=== PATIENT | male | born 1950 | race Caucasian/White ===

== ENCOUNTER 2017-03-12 07:30 | Day surgery (SDC) | payer OTHER ==
[~2017-03-12] VITALS: Ht 172.7 cm; Wt 107.0 kg
[~2017-03-12 07:30] MED LIST: BECL8.7A6 INHALATION; BENEDRYL PO; FLUT16SP NS; GABA-502 PO; GLIP10TA10 PO; GUAI120L57 PO; HYDR12.5 PO; KEN25CR EXT; LISI-567 PO; MELO-253 PO; METF500T4 PO; PREG50CA PO; SILD20TA14 PO
[2017-03-12] MEDS ORDERED: ATRV10T PO (08:16)
[2017-03-12] MEDS ORDERED: Gadopentetate Dimeglumine 5 mL Inj IVPUSH ONE (08:22)
--- NOTE | 2017-03-12 12:55 | PCM.PROC ---
Procedure Note Date of Service: Mar 12, 2017 Pre Procedure Diagnosis: RIGHT C4 transforaminal epidural steroid injection rescheduled secondary to elevated fingerstick glucose. Dada Fam MD Mar 12, 2017 12:55
[2017-04-08] MEDS ORDERED: MELO-253 PO (15:02)
[2017-04-08] MEDS ORDERED: KEN25CR EXT (15:02)
[2017-04-08] MEDS ORDERED: GUAI120L57 PO (15:02)
[2017-04-08] MEDS ORDERED: SILD20TA14 PO (15:02)
[2017-04-08] MEDS ORDERED: FLUT16SP NS (15:02)
[2017-04-08] MEDS ORDERED: GLIP10TA10 PO (15:02)
[2017-04-08] MEDS ORDERED: HYDR12.55 PO (15:02)
[2017-04-08] MEDS ORDERED: BECL8.7A6 INHALATION (15:02)
[2017-04-08] MEDS ORDERED: PREG50CA PO (15:02)
[2017-04-08] MEDS ORDERED: DIPH25CA6 PO (15:02)
[2017-04-08] MEDS ORDERED: GABA-502 PO (15:02)
[2017-04-08] MEDS ORDERED: LISI-567 PO (15:02)
== END 2017-03-12 23:59 | disposition home or self-care (01) ==
LOC: END 07:30
PROVIDERS: ATTEND Anesthesiology Pain Medicine
DX: M54.12 Radiculopathy, cervical region (principal); M54.2 Cervicalgia; M19.90 Unspecified osteoarthritis, unspecified site; E11.42 Type 2 diabetes mellitus with diabetic polyneuropathy; Z79.84 Long term (current) use of oral hypoglycemic drugs; Z53.09 Procedure and treatment not carried out because of other contraindication

== ENCOUNTER 2017-04-09 07:30 | Day surgery (SDC) | payer OTHER ==
[~2017-04-09] VITALS: Ht 172.7 cm; Wt 109.0 kg
[~2017-04-09 07:30] MED LIST changes: -BENEDRYL PO; +DIPH25CA6 PO; -HYDR12.5 PO; +HYDR12.55 PO; -METF500T4 PO
[2017-04-09] MEDS ORDERED: Lidocaine PF 1% 5 mL Inj ONE (07:31)
[2017-04-09] MEDS ORDERED: Dexamethasone 10 mg/mL Inj ONE (07:31)
[2017-04-09] MEDS ORDERED: Gadopentetate Dimeglumine 5 mL Inj IVPUSH ONE (07:55)
[2017-04-09 07:59] VITALS: BP 167/74; PULSE 67; RESP 20; O2SAT 98
--- NOTE | 2017-04-09 14:39 | PCM.PROC ---
Procedure Note Date of Service: April 09, 2017 Pre Procedure Diagnosis: PROCEDURE: RIGHT C4 transforaminal epidural steroid injection PRE-PROCEDURE DIAGNOSIS: Cervical radiculopathy POST-PROCEDURE DIAGNOSIS: same INDICATION: 66-year-old gentleman with RIGHT arm pain consistent with cervical radiculopathy PERFORMED BY: Dada Fam MD DESCRIPTION OF PROCEDURE: Patient was met in the holding area. Consent was signed, site was confirmed and all questions were answered. Patient was taken to the procedure suite and placed supine on the procedure table. An IV was placed with TKO NS. The side of the neck was prepped and draped in sterile fashion. The image intensifier was rotated to an oblique view to visualize the proper neuroforamen. Local anesthesia with 1% lidocaine was injected into the skin and superficial subcutaneous tissue. A 2 inch 25-gauge Quincke spinal needle was advanced towards the inferior/posterior aspect of the neural foramina. After the SAP of the neuroforamina was contacted with the spinal needle the bevel was directed anterior. The view was then changed to an AP view and the tip of the needle was stopped lateral to the sagittal midline of the articular pillar. Radiopaque contrast was injected under live fluoroscopy which demonstrated outline of the spinal nerve, dorsal root ganglion as well as spread into the epidural space. No vascular uptake was noted. 1 cc 1% lidocaine was injected. After 1 minute with no neurologic sequela, 10 mg of Decadron was injected. This was followed by another half cc of 1% lidocaine ANESTHESIA: Local. EBL: None. No Blood Products Used COMPLICATIONS: None SPECIMENS: None POST-PROCEDURE DISPOSITION: Patient was returned to the holding area in stable condition. They were discharged home when all discharge criteria were met. Evaluation/Physical Exam before discharge revealed: Preprocedure pain: 4/10. Post procedure pain: 1/10 DISCHARGE MEDICATIONS: (none unless otherwise noted) ASSESSMENT/ FOLLOW UP: Return to clinic in 4 weeks Dada Fam MD * Pain Management * Anesthesiology Dada Fam MD April 09, 2017 14:39
== END 2017-04-09 23:59 | disposition home or self-care (01) ==
LOC: END 07:30
PROVIDERS: ATTEND Anesthesiology Pain Medicine
PROC: 3E0R33Z Introduction of Anti-inflammatory into Spinal Canal, Percutaneous Approach (ICD-10-PCS; principal; 2017-04-09 08:00)
DX: M54.12 Radiculopathy, cervical region (principal); E11.42 Type 2 diabetes mellitus with diabetic polyneuropathy
CPT/HCPCS: 64479; A9579; J1100

== ENCOUNTER → 2017-07-15 | Day surgery (SDC) | payer OTHER ==
[~2017-07-15] VITALS: Ht 172.7 cm; Wt 107.3 kg
[~2017-07-15] MED LIST changes: +Atropine 0.4 mg/mL Inj IVPUSH PRN; +CYCL10TA9 PO; +EPHEDrine Sulfate 50 mg/mL Inj IVPUSH PRN; +HYDROcodone-APAP 5-325 mg Tablet PO PRN; +Labetalol 5 mg/mL 20 mL Inj IV PRN; +Lactated Ringer's 1,000 ML IV SCH; +Lactated Ringer's 500 ML IV PRN; +Lidocaine 1%-Epi 1:100,000 20 mL Inj NERVEBLOCK ONE; +METF500T4 PO; +Ondansetron 2 mg/mL 2 mL Inj IVPUSH PRN; -PREG50CA PO; +Phenylephrine 10,000 mCg/mL Inj IVPUSH PRN; +Propofol 10 mg/mL 20 mL Inj ONE; +TRAM50TA2 PO; +fentaNYL-PF 50 mCg/mL 2 mL Inj IVPUSH PRN; +lantus SUBQ
[2017-07-15] MEDS: Lactated Ringer's 1,000 ML IV SCH ×2 (07:04→08:00)
[2017-07-15 07:20] VITALS: BP 138/82; PULSE 50; RESP 17; O2SAT 99
--- NOTE | 2017-07-15 08:30 | PCM.HPANE ---
Patient Data Surgeon Admitting Provider: Attending Provider:Ousmane Alarcon DO Primary Care Physician:Phil Logan MD Other Provider:Laquita Dooleyingham Anesthesia Reason for Visit Left Middle Finger Trigger Finger Ht/WT & BMI Height (Feet): 5 Height (Inches): 8 Weight (Kilograms): 107.3 Body Mass Index 35.00 Allergies Coded Allergies: TAPE (Verified Allergy, Severe, HIVES (PAPER OK), 08/09/14) iodine (Verified Allergy, Severe, HIVES (BOTH TOPICAL & INJECTABLE IODINE), 08/09/14) povidone-iodine (Verified Allergy, Severe, HIVES, 07/15/17) soap (Verified Allergy, Severe, HIVES, 07/15/17) Uncoded Allergies: SEAFOOD (Allergy, Severe, HIVES, 05/10/12) CONTRAST (Allergy, Unknown, 07/15/17) Past Anesthesia History Anesthesia History: Positive for:: Anesthesia Reactions (N&V), Denies:: Abnormal Airway, Difficult Intubation, Fam Anesthesia Reaction, Malignant Hyperthermia Diabetes History Hx Diabetes?: Yes Type of Diabetes: Type II Glycemic Control: Insulin & Oral Medication MRSA MRSA: No Medications Hypertension Medication: Yes Home Meds Incl Beta Donna: No Reported Medications Gabapentin 300 Mg [id number] Mg PO TID Ref 0 07/12/17 Tramadol 50 Mg Palxwr38 Mg PO Q6H PRN For Pain Ref 0 07/09/17 Metformin 500 Mg Nqiyxs214 Mg PO BID Ref 0 07/09/17 [lantus] No Conflict Sjiqj38-76 Units SUBQ HS 07/09/17 Cyclobenzaprine 10 Mg Kedzfd81 Mg PO TID PRN Spasm 07/09/17 Triamcinolone Acet (Triamcinolone Acetonide Cream)1 Applic/0.25 Gm Cr1 Applic EXT PRN #60 GM Ref 0 04/08/17 Meloxicam 15 Mg Tjsrcc98 Mg PO DAILY 30 Days Ref 0 04/08/17 Lisinopril 20 Mg Uklqjw35 Mg PO DAILY 30 Days Ref 0 04/08/17 Hydrochlorothiazide 12.5 Mg Cyfkjc55.5 Mg PO DAILY 30 Days Ref 0 04/08/17 Glipizide 10 Mg Xnbgpt88 Mg PO BID 30 Days 04/08/17 diphenhydrAMINE HCl (Benadryl)25 Mg Nzeaoot21 Mg PO HS PRN Ref 0 04/08/17 Discontinued Reported Medications Sildenafil Citrate (Sildenafil)20 Mg Jypfay75 Mg PO TID 07/09/17 Beclomethasone Dipropionate (Qvar)8.7 Gm Aer.w.adap2 Puff INHALATION BID #8.7 GM 04/08/17 Guaifenesin/Codeine Phosphate (Codeine-Guaifen 10-100 mg/5 ml)120 Ml Lajqhd64 Ml PO 04/08/17 Fluticasone Propionate (Fluticasone Propionate Nasal)16 Gm [place].susp1 [place] NS BID #16 GM Ref 0 04/08/17 Gabapentin 300 Mg Yjtfhyd367 Mg PO TID Ref 0 04/08/17 History History of ENT Problems?: Yes HEENT History: Positive for:: Hearing Problem TMJ (wears nightguard) Denies:: Abnormal Airway Cataracts Difficult Intubation Dysphagia Glaucoma Sinus Problem Denture Type: None Teeth Condition: Within Normal Limits Hx of Heart Problems?: Yes Cardiovascular History: Positive for:: Hypertension Denies:: AICD Atrial Fibrillation Cardiac Surgery Chest Pain Coronary Artery Disease Heart Murmur Irregular Heartbeat Pacemaker Peripheral Vascular Rheumatic Fever Hx of Respiratory Problem?: Yes Respiratory History: Positive for:: Use of C-PAP Machine Denies:: Asthma COPD Emphysema Oxygen Administration Pneumonia Tuberculosis Use of Inhalers / NEBS Hx Neurologic Problems?: No Neurological History: Positive for:: Headaches (r/t nerve neck ) Denies:: CVA Multiple Sclerosis Parkinson's Disease Seizures TIA Hx of GI Problems?: Yes Hx of Problems?: No Genitourinary History: Denies:: Kidney Stones Urinary Tract Infection HX of Peritoneal Dialysis: No Male Hx: Denies:: Prostate Problems Scrotal Mass Testicular Surgery Skin History: Denies:: History Skin Disorders? Pressure Ulcers Hx Musculoskeletal Problems?: Yes Musculoskeletal History: Positive for:: Back Injury (hx of cervical spine dx with injections) Musculoskeletal Trauma (left middle ring finger current admission problem) Osteoarthritis Denies:: Degenerative Joint Fibromyalgia Joint Replacement Hx of Psycho/Social Problems?: No Psycho Social History: Denies:: Anxiety Hx Depression Hx Surgeries?: Yes (RT SHOULDER RPR,RT WRIST RPR,LT ANKLE RPR X2,RT KNEE RPR X4 ,EXC FACIAL MARILEE) Hx Any Other Health Problems?: Yes Other History: Positive for:: Cancer (melanoma hx- facial) Denies:: Endocrine Disease Hospitalization Thyroid Disease History Blood Transfusions: Positive for:: Accept Blood Products? Denies:: Blood Transfusions Hx Diabetes: Yes Hx Alcohol Use: YesAlcoholic Drinks Per Day: two glasses wine weeklyHx Substance Use: No Smoking Status: Former Smoker Have You Smoked inLast 12 mo: No Stop/Bang S-Snoring: Do You Snore Loudly: No T-Tired: feel tired, fatigued: No O-Obsered: Observed not breath: No P-Blood Pressure: treated: Yes B- Body Mass Index > 35 kg/m2: Yes A- Age over 50: Yes N- Neck Large Circumference: No G- Gender Male: Yes DIANA Total Score: 4 Risk Assessment Category Category 1A: Patient has history of documented sleep apnea, and HAS NOT received any narcotic, sedative or anesthesia administration during this stay. Category 1B: Patient has history of documented sleep apnea, and HAS received any narcotic , sedative or anesthesia administration during this stay Category 2: Patient has SUSPECTED Obstructive Sleep Apnea, and HAS received any narcotic , sedative or anesthesia administration during this stay. Category 3: Patient has SUSPECTED Obstructive Sleep Apnea and HAS NOT received narcotic, sedative or anesthesia administration during this stay. Category 4: Outpatient in Procedural Areas with known sleep apnea or who screen positive for High Risk via the STOP/BANG questionnaire. Exam Exam Vital Signs Vital Signs Date Time Temp Pulse Resp B/P Pulse Ox O2 Delivery O2 Flow Rate FiO2 07/15/17 07:28 CPAP/BIPAP 07/15/17 07:20 35.9 50 17 138/82 99 Room Air General Appearance: Alert, Oriented X3, Cooperative, No Acute Distress HEENT/AIRWAY: MP 2, Neck Movement (FROM), Mouth Opening (3 FBMO) Lungs: Clear to Auscultation, Normal Air Movement Heart: Exam Unremarkable, Regular Rate/Rhythm, No Murmurs/Rubs/Gallops Meds/Labs/Diagnostics Admission Meds Current Medications Lactated Ringer's (Lr) 1,000 ml @ 120 mls/hr Q8H20M IV Last administered on t 07:04; Start 07/15/17 at 05:00; Stop 07/15/17 at 13:19 Plan Impression Patient chart reviewed, patient interviewed and anesthestic plan with risks, benefits, and alternatives discussed, and informed consent obtained. NPO per Anesth. Guidelines: Yes ASA Physical Status: ASA3 Severe Disease (Iddm) Anesthetic Plan: MAC Bene/Risks/Altern/Consents: Yes HP Complete Prior to Induction: Yes Didier Snowden MD Jul 15, 2017 07:33
[2017-07-15 08:44] VITALS: BP 137/65; PULSE 68; RESP 20; O2SAT 97
[2017-07-15 09:12] VITALS: BP 135/70; PULSE 70; RESP 18; O2SAT 98
--- NOTE | 2017-07-15 09:54 | OP ---
[address] [address] OPERATIVE REPORT PATIENT: JAMES BARTH : 1950 MR#: [id number] ADMIT: 07/15/2017 JOB ID: [id number] DATE OF SURGERY: 07/15/2017 PREOPERATIVE DIAGNOSIS(ES): Left middle finger trigger finger. POSTOPERATIVE DIAGNOSIS(ES): Left middle finger trigger finger. PROCEDURE: Left middle finger A1 viet release. SURGEON: Ousmane Alarcon D.O. ANESTHESIA: Monitored anesthesia care with local. BRIEF HISTORY: The patient is a pleasant 66-year-old male with a longstanding history of left middle finger catching and locking. He had a similar condition to his contralateral hand that was treated with a trigger finger release. With failure to conservative treatment, I offered the patient to proceed with the same procedure that he had to his contralateral side consisting of a left middle finger A1 viet release. He understood the risks include, but are not limited to, neurovascular injury, tendon injury, infection, failure to resolve the symptoms, recurrent stiffness, persistent pain, all of which may require further intervention. The patient had all questions answered. Consent was signed and placed in the chart. PROCEDURE IN DETAIL: The patient was brought to the operative suite and placed supine on the operating room table. Surgical time-out performed. Everyone in the room was in agreement. After appropriate anesthesia was obtained, the left hand was then prepped and draped in a sterile fashion. An oblique incision was made directly overlying the left middle finger A1 viet overlying the palmar crease. Dissection was carried down directly to the A1 viet. Care was taken to protect the digital neurovascular bundles. The A1 viet was incised longitudinally in line with the underlying flexor tendons. After complete release of the viet was identified, the patient was asked to demonstrate a full composite fist and was able to do so without any catching or locking appreciated. Copious irrigation was performed followed by closure of the skin with 5-0 nylon in a simple interrupted fashion. The patient was then placed in a bulky soft dressing. ESTIMATED BLOOD LOSS: Less than 1 cc. COMPLICATIONS: None. DISPOSITION: The patient tolerated the procedure well. Anesthesia was reversed and the patient was transferred back to recovery. POSTOPERATIVE PLAN: The patient will followup in my office in two weeks. We will remove the patient's sutures at that time. Have him start working on range of motion and scar mobilization.
--- NOTE | 2017-07-15 18:25 | PCM.ANEP1 ---
Post Anesthesia PACU Phase 1 Assessment Anesthetic Administered: GA, MAC Level of Alertness: Awake, talking BREWER's with Equal Strength: Yes Pain: No Nausea or Vomiting: No CV Function & Hydration Stable: Yes Airway Device: na Oxygen Delivery: Room Air Lungs: Clear to Auscultation, Normal Air Movement Dermatome Level: Full Sensation PACU Phase 2 Assessment Complications: No Follow up Care: N/A Patient Instructions Provided: N/A Didier Snowden MD Jul 15, 2017 18:25
== END | disposition home or self-care (01) ==
LOC: SAS 06:53
PROVIDERS: ATTEND Orthopaedic Surgery
DX: M65.332 Trigger finger, left middle finger (principal); I10 Essential (primary) hypertension; G47.33 Obstructive sleep apnea (adult) (pediatric); E11.42 Type 2 diabetes mellitus with diabetic polyneuropathy; E78.5 Hyperlipidemia, unspecified; Z87.891 Personal history of nicotine dependence; Z79.4 Long term (current) use of insulin; Z79.84 Long term (current) use of oral hypoglycemic drugs
CPT/HCPCS: 26055; J2704; J7120